=== PATIENT | female | born 1970 | race Two or more races ===

== ENCOUNTER 2019-01-16 16:20 | Inpatient (IN) | payer OTHER ==
[~2019-01-16] VITALS: Ht 147.3 cm; Wt 65.8 kg
[2019-01-18] MEDS ORDERED: SPIRIVA RESPIMAT4 G1 IH (16:03)
[2019-01-18] MEDS ORDERED: JANUVIA100 MG PO (16:04)
[2019-01-18] MEDS ORDERED: TRIGLIDE160 MG (16:04)
[2019-01-18] MEDS ORDERED: LIPITOR40 MG PO (16:04)
[2019-01-18] MEDS ORDERED: GLIPIZIDE XL10 MG PO (16:05)
[2019-01-18] MEDS ORDERED: EVISTA60 MG PO (16:05)
[2019-01-18] MEDS ORDERED: PROTONIX40 MG PO (16:05)
[2019-01-18] MEDS ORDERED: ZESTRIL30 MG PO (16:06)
[2019-01-18] MEDS ORDERED: SYNTHROID112 MCG PO (16:06)
[2019-01-18] MEDS ORDERED: PLAVIX75 MG PO (16:06)
[2019-01-18] MEDS ORDERED: ZANTAC300 MG PO (16:07)
[2019-01-18] MEDS ORDERED: VIT D PO (16:07)
[2019-01-22] MEDS ORDERED: VITAMIN D5000 UNIT PO (08:25)
[2019-01-26] MEDS ORDERED: OXYC1TAB9 PO (10:39)
== END 2019-01-26 14:08 | disposition home or self-care (01) | DRG 331 ==
LOC: O/R 01-22 06:55 → SURG 01-22 06:55
PROVIDERS: ADMIT Surgery
PROC: 0DJD8ZZ Inspection of Lower Intestinal Tract, Via Natural or Artificial Opening Endoscopic (ICD-10-PCS; 2019-01-22)
PROC: 0DTN4ZZ Resection of Sigmoid Colon, Percutaneous Endoscopic Approach (ICD-10-PCS; principal; 2019-01-22 10:30)
DX: K57.32 Diverticulitis of large intestine without perforation or abscess without bleeding (principal); I10 Essential (primary) hypertension; K63.89 Other specified diseases of intestine; E11.9 Type 2 diabetes mellitus without complications; Z79.4 Long term (current) use of insulin

== ENCOUNTER → 2019-01-16 | Outpatient (CLI) | payer OTHER ==
[~2019-01-16] MED LIST: EVISTA60 MG PO; GLIPIZIDE XL10 MG PO; JANUVIA100 MG PO; LIPITOR40 MG PO; OXYC1TAB9 PO; PLAVIX75 MG PO; PROTONIX40 MG PO; SPIRIVA RESPIMAT4 G1 IH; SYNTHROID112 MCG PO; TRIGLIDE160 MG; VIT D PO; VITAMIN D5000 UNIT PO; ZANTAC300 MG PO; ZESTRIL30 MG PO
== END | disposition home or self-care (01) ==
LOC: RAD 12:16 → LAB 12:16
DX: R10.32 Left lower quadrant pain (principal); K57.32 Diverticulitis of large intestine without perforation or abscess without bleeding; I10 Essential (primary) hypertension

== ENCOUNTER 2020-05-25 13:01 | Outpatient (CLI) | payer OTHER ==
[2020-06-02] MEDS ORDERED: JANUMET 50-1,01 EACH PO (14:07)
== END 2020-05-25 13:16 | disposition home or self-care (01) ==
LOC: LAB 13:01
PROVIDERS: ATTEND Orthopaedic Surgery Hand Surgery
DX: I10 Essential (primary) hypertension (principal); N39.0 Urinary tract infection, site not specified; E11.9 Type 2 diabetes mellitus without complications; E78.00 Pure hypercholesterolemia, unspecified; E78.3 Hyperchylomicronemia; D65 Disseminated intravascular coagulation [defibrination syndrome]; D66 Hereditary factor VIII deficiency; Z01.810 Encounter for preprocedural cardiovascular examination

== ENCOUNTER 2020-06-09 06:02 | Day surgery (SDC) | payer OTHER ==
[~2020-06-09 06:02] MED LIST changes: +JANUMET 50-1,01 EACH PO
== END 2020-06-09 18:10 | disposition home or self-care (01) ==
LOC: CIR.AMB 06:02
PROVIDERS: ATTEND Orthopaedic Surgery Hand Surgery
DX: M77.11 Lateral epicondylitis, right elbow (principal); G56.31 Lesion of radial nerve, right upper limb; Z20.822 Contact with and (suspected) exposure to COVID-19

== ENCOUNTER 2020-08-03 08:03 | Outpatient (CLI) | payer OTHER | END 2020-08-03 08:09 | disposition home or self-care (01) | LOC: SONOGRAMA 08:03 | PROVIDERS: ATTEND Pathology Anatomic Pathology & Clinical Pathology | DX: D34 Benign neoplasm of thyroid gland (principal); E04.2 Nontoxic multinodular goiter ==

== ENCOUNTER 2021-03-08 09:46 | Day surgery (SDC) | payer OTHER | END 2021-03-08 14:50 | disposition home or self-care (01) | LOC: AMB-ENDOS 09:46 | PROVIDERS: ATTEND Surgery | DX: K57.32 Diverticulitis of large intestine without perforation or abscess without bleeding (principal) ==